=== PATIENT | male | born 1940 | race Caucasian/White ===

== ENCOUNTER 2018-01-12 12:14 | Observation (INO) | payer OTHER ==
[~2018-01-12] VITALS: Ht 182.9 cm; Wt 81.6 kg
[2018-01-12] MEDS ORDERED: SODIUM CHLORIDE 0.9% 1,000 ML IVB ONE (13:17)
[2018-01-12] MEDS ORDERED: MORPHINE SULFATE 4 MG/ML SYR/VIAL IM ONE (13:30)
[2018-01-12] MEDS ORDERED: ONDANSETRON HCL 4 MG/2 ML VIAL IV ONE (13:30)
[2018-01-12 13:44] LABS: Basophils # (auto) 0 uL; Basophils % (auto) 0.5 % (0.0-2.0); Eosinophils # (auto) 0 uL; Eosinophils % (auto) 0.7 % (0.0-7.0); Hematocrit 46.2 % (41.0-53.0); Hemoglobin 15.8 g/dL (13.5-17.5); Lymphocytes # (auto) 1.4 uL; Lymphocytes % (auto) 25.6 % (10.0-50.0); Mean Corpuscular Hemoglobin 29.6 pg (28.0-32.0); Mean Corpuscular Hgb Conc. 34.2 g/dL (32.0-36.0); Mean Corpuscular Volume 86.4 fL (80.0-100.0); Monocytes # (auto) 0.5 uL; Monocytes % (auto) 8.3 % (0.0-12.0); Neutrophils # (auto) 3.5 uL; Neutrophils % (auto) 64.9 % (37.0-80.0); Nucleated Red Blood Cells % 0.1 %; Platelet Count (auto) 217 10^3/uL (140-450); Red Blood Cells 5.34 10^6/uL (4.5-5.90); Red Cell Distribution Width 14.6 % (11.8-14.3); White Blood Cell 5.4 10^3/uL (4.4-10.8)
[2018-01-12 14:05] LABS: Albumin 4.5 g/dL (3.4-5.0); BUN/Creatinine Ratio 9.9; Bilirubin, Total 1.3 mg/dL (0.2-1.0); Calcium 9.4 mg/dL (8.5-10.1); Magnesium 2.7 mg/dL (1.6-2.6); Total Protein 8.7 g/dL (6.4-8.2)
[2018-01-12 14:12] LABS: Potassium 2.9 mmol/L (3.5-5.1)
[2018-01-12 14:18] LABS: INR 2.76 (0.9-1.15); Partial Thromboplastin Time 38.4 sec (22.64-33.71); Prothrombin Time 30.4 sec (9.37-12.3)
[2018-01-12 14:26] LABS: Urine Bacteria NONE SEEN /hpf (None Seen); Urine Blood Negative /uL (Negative); Urine Specific Gravity 1.011 (1.001-1.035); Urine WBC 1 /hpf (0 - 3)
[2018-01-12] MEDS: POTASSIUM CHL 20MEQ/100ML 100 ML IV SCH ×2 (14:45→16:45)
[2018-01-12] MEDS ORDERED: MORPHINE SULFATE 4 MG/ML SYR/VIAL IV ONE (16:15)
[2018-01-12] MEDS ORDERED: MEPERIDINE HCL (25 MG/ML) 1ML VIAL IV ONE ×2 (17:45→18:30)
[2018-01-12] MEDS ORDERED: POTASSIUM CHL 20 Meq TABLET PO ONE (18:00)
[2018-01-12 20:05] VITALS: BP 186/110
[2018-01-12] MEDS ORDERED: HYDROmorphone HCL 2 MG TAB PO ONE (20:15)
== END 2018-01-12 20:33 | disposition home or self-care (01) | DRG 694 ==
LOC: ER 12:14 → OVERFLOW 13:20 → ER 20:33
PROVIDERS: ADMIT Family Medicine; ATTEND Family Medicine
DX: N13.8 Other obstructive and reflux uropathy (principal); C79.51 Secondary malignant neoplasm of bone; N13.30 Unspecified hydronephrosis; C61 Malignant neoplasm of prostate; I48.91 Unspecified atrial fibrillation; E87.6 Hypokalemia; M54.9 Dorsalgia, unspecified; G89.29 Other chronic pain; K21.9 Gastro-esophageal reflux disease without esophagitis; I10 Essential (primary) hypertension; F32.9 Major depressive disorder, single episode, unspecified; Z85.46 Personal history of malignant neoplasm of prostate; Z82.49 Family history of ischemic heart disease and other diseases of the circulatory system
CPT/HCPCS: 36415; 71045; 72131; 74176; 80053; 81001; 83605; 83735; 85025; 85610; 85730; 87040; 93005; 96361; 96365; 96366; 96372; 96375; 99285; G0378; J2175; J2270; J2405; J3480